=== PATIENT | male | born 1950 | race Caucasian/White ===

== ENCOUNTER → 2019-05-08 | Outpatient (CLI) | payer MEDICARE, OTHER ==
[~2019-05-08] MED LIST: ALBU90OI INH; BECL25NI; CITA20 PO; CLINDAMYCIN; Celexa40 MG PO; Citalopram HBr40 MG PO; DICLOFONO2.5 GM TOP; DYMISTA NASAL S23 GM; Depo-Testos200 MG/ML IM; ESOM20 PO; Flonase 0.05% N16 GM; GLIP5 PO; GLIP5ER PO; Janumet 50-1,01 EACH; Janumet 50-1,01 EACH PO; LISI5 PO; METF500 PO; MONT10T PO; Metformin HCl500 MG PO; NITR.4SL SL; Norco 5-325 Ta1 EACH PO; OMEPRAZOLE DR 40 MG; ONDA4ODT MM; PANT40 PO; PRAV20 PO; PRIM50 PO; Pravastatin Sod80 MG PO; Prednisone20 MG PO; Prilosec Otc20 MG PO; Prinivil10 MG; Zantac150 MG PO
[2019-05-08 15:48] LABS: Protein, Urine Quantitative 25.1 mg/dL (0.0-11.9)
== END | disposition home or self-care (01) ==
LOC: LAB 14:46 → LAB SHORT 14:46
PROVIDERS: Internal Medicine Nephrology
DX: N18.2 Chronic kidney disease, stage 2 (mild) (principal); D63.1 Anemia in chronic kidney disease; R80.9 Proteinuria, unspecified
CPT/HCPCS: 81050; 82043; 82570; 84156

== ENCOUNTER 2019-08-01 07:54 | Day surgery (SDC) | payer MEDICARE, OTHER ==
[~2019-08-01] VITALS: Ht 170.2 cm; Wt 103.7 kg
[~2019-08-01 07:54] MED LIST changes: +Prinivil10 MG PO
[2019-08-01] MEDS ORDERED: ZYRTEC10 M1 PO (08:09)
--- NOTE | 2019-08-01 08:33 | NUR ---
Ambulatory in Day Surgery History, Chart, Medications and Allergies reviewed before start of procedure.Lungs clear T/O to Auscultation. Patient confirms NPO status and agrees with scheduled surgery. Patient reports completing Chlorhexadine shower X2 prior to admission to hospital.Surgical site prepped with 2% Chlorhexidine cloth wipe.
--- NOTE | 2019-08-01 13:19 | NUR ---
PT ARRIVED TO THE UNIT AT APPROXIMATELY 1220. PT ALERT AND ORIENTED. VSS. WILL MONITOR UNTIL REPORT TO ONCOMING RN.
--- NOTE | 2019-08-01 19:43 | NUR ---
SHIFT SUMMARY PAIN HAS BEEN MANAGED WITH PO PAIN MEDICATION. PT IS A 1 PERSON ASSIST WHEN OOB. TOLERATING FOOD AND FLUIDS. VSS. REPORT GIVEN TO MOLLY SHERMAN.
[2019-08-02 04:06] LABS: BASOPHILS ABSOLUTE AUTO 0.05 K/mm3 (0.00-0.23); BASOPHILS PERCENT AUTO 1 % (0-2); EOSINOPHILS PERCENT AUTO 5 % (0-6); Hematocrit 42.1 % (37.0-53.0); Hemoglobin 13.3 g/dL (13.5-17.5); IMMATURE GRAN ABSOLUTE AUTO 0.06 K/mm3 (0.00-0.10); IMMATURE GRAN PERCENT AUTO 1 % (0-1); LYMPHOCYTES ABSOLUTE AUTO 1.63 K/mm3 (0.84-5.20); LYMPHOCYTES PERCENT AUTO 18 % (21-46); MONOCYTES ABSOLUTE AUTO 0.71 K/mm3 (0.16-1.47); MONOCYTES PERCENT AUTO 8 % (4-13); Mean Corpuscular HGB 27.6 pg (26.0-34.0); Mean Corpuscular HGB Conc 31.6 g/dL (31.5-36.5); Mean Platelet Volume 10.4 fL (9.1-12.4); NEUTROPHILS ABSOLUTE AUTO 6.09 K/mm3 (1.96-9.15); NEUTROPHILS PERCENT AUTO 68 % (41-73); Platelet Count 158 K/mm3 (150-400); RDW Coefficient Variation 14.8 % (11.7-14.2); RDW Standard Deviation 47.2 fL (35.1-46.3); Red Blood Cell Count 4.82 M/mm3 (4.30-5.90); White Blood Cell Count 8.94 K/mm3 (4.00-11.30)
[2019-08-02 04:07] LABS: Mean Corpuscular Volume 87 fL (80-100)
[2019-08-02 04:27] LABS: Bun/Creatinine Ratio 15.6 (12.0-20.0); Calcium, Blood 7.6 mg/dL (8.5-10.1); Creatinine, Blood 1.79 mg/dL (0.60-1.20); Potassium, Blood 4.7 mmol/L (3.5-5.5)
--- NOTE | 2019-08-02 05:42 | NUR ---
SUMMARY: POD [address] DIAZ. VSS, AFEBRILE, ROOM AIR, HOME CPAP AT [facility]. PT PAIN WELL CONTROLLED WITH 5MG OXYCODONE X2 THIS SHIFT AND SCHEDULED MEDS. TOLERATING PO INTAKE, VOIDING AND HAD BM IN NOC. MOVES WELL WITH 1 SBA USING FWW. ANTICIPATE PT/OT AND OOB ACTIVITY WITH PROBABLE DC HOME LATER THIS DAY.
[2019-08-02] MEDS ORDERED: CELE100 PO (10:05)
[2019-08-02] MEDS ORDERED: ASPI81CH PO (10:06)
[2019-08-02] MEDS ORDERED: Percocet 5-3251 EACH PO (10:06)
--- NOTE | 2019-08-02 12:27 | NUR ---
DISCHARGE PT WHEELED OUT BY FRIEND. SCRIPT AND DRSGS GIVEN. STATES UNDERSTANDING OF DISCHARGE INSTRUCTIONS.
--- NOTE | 2019-08-03 09:08 | NUR ---
08/03/19 0908 Maricel Pérez VERIFICATIONS: EDIT CHART.
== END 2019-08-02 12:24 | disposition home or self-care (01) ==
LOC: ORSCMMR 07:54 → ORD 08:45 → ORSCMMR 09:45 → ORD 10:00 → SURS 12:46 → ORSCMMR 08-02 12:24
PROVIDERS: Orthopaedic Surgery
PROC: 0SRC0JA Replacement of Right Knee Joint with Synthetic Substitute, Uncemented, Open Approach (ICD-10-PCS; principal; 2019-08-01 09:45)
DX: M17.11 Unilateral primary osteoarthritis, right knee (principal); I10 Essential (primary) hypertension; E11.9 Type 2 diabetes mellitus without complications; G47.33 Obstructive sleep apnea (adult) (pediatric); J44.9 Chronic obstructive pulmonary disease, unspecified; J45.909 Unspecified asthma, uncomplicated; E78.5 Hyperlipidemia, unspecified; Z79.899 Other long term (current) drug therapy; E66.9 Obesity, unspecified; Z68.35 Body mass index [BMI] 35.0-35.9, adult
CPT/HCPCS: 36415; 73560-RT; 80048; 82947; 85025; 88300; 97110; 97116; 97161; 97530; C1776; J0171; J0690; J0735; J1200; J1815; J1885; J2250; J2704; J2795; J3010; J3490; J7120; Q0163

== ENCOUNTER 2023-08-28 19:20 | Emergency (ER) | payer MEDICARE, BC ==
[~2023-08-28] VITALS: Ht 170.2 cm; Wt 100.7 kg
[~2023-08-28 19:20] MED LIST changes: +ASPI81CH PO; +CELE100 PO; +OZEMPIC0.25 MG/02 SQ; +Percocet 5-3251 EACH PO; +ZYRTEC10 M1 PO
[2023-08-28 19:49] LABS: BASOPHILS ABSOLUTE AUTO 0.03 K/mm3 (0.00-0.23); BASOPHILS PERCENT AUTO 1 % (0-2); EOSINOPHILS ABSOLUTE AUTO 0.25 K/mm3 (0.00-0.68); EOSINOPHILS PERCENT AUTO 5 % (0-6); Hematocrit 52.3 % (37.0-53.0); Hemoglobin 16.2 g/dL (13.5-17.5); IMMATURE GRAN ABSOLUTE AUTO 0.02 K/mm3 (0.00-0.10); IMMATURE GRAN PERCENT AUTO 0 % (0-1); LYMPHOCYTES ABSOLUTE AUTO 1.19 K/mm3 (0.84-5.20); LYMPHOCYTES PERCENT AUTO 25 % (21-46); MONOCYTES ABSOLUTE AUTO 0.41 K/mm3 (0.16-1.47); MONOCYTES PERCENT AUTO 8 % (4-13); Mean Corpuscular HGB 28.9 pg (26.0-34.0); Mean Corpuscular Volume 93 fL (80-100); Mean Platelet Volume 10.3 fL (9.1-12.4); NEUTROPHILS ABSOLUTE AUTO 2.96 K/mm3 (1.96-9.15); NEUTROPHILS PERCENT AUTO 61 % (41-73); Platelet Count 165 K/mm3 (150-400); RDW Coefficient Variation 16.7 % (11.7-14.2); White Blood Cell Count 4.86 K/mm3 (4.00-11.30)
[2023-08-28 20:23] LABS: Albumin, Blood 3.7 g/dL (3.4-5.0); Albumin/Globulin Ratio 0.9 (0.8-1.8); Bilirubin, Total 0.3 mg/dL (0.1-1.0); Bun/Creatinine Ratio 19.6 (12.0-20.0); Calcium, Blood 8.3 mg/dL (8.5-10.1); Creatinine, Blood 1.48 mg/dL (0.60-1.20); Globulin, Blood 3.9 g/dL (2.2-4.0); Potassium, Blood 4.6 mmol/L (3.5-5.5); Total Protein, Blood 7.6 g/dL (6.4-8.2)
[2023-08-28 21:12] VITALS: BP 142/71
== END 2023-08-28 21:32 | disposition home or self-care (01) ==
LOC: ER 19:20
PROVIDERS: Emergency Medicine
DX: A08.4 Viral intestinal infection, unspecified (principal); E11.9 Type 2 diabetes mellitus without complications; E78.5 Hyperlipidemia, unspecified; F41.9 Anxiety disorder, unspecified; F32.A Depression, unspecified; Z88.1 Allergy status to other antibiotic agents; Z79.899 Other long term (current) drug therapy; Z79.84 Long term (current) use of oral hypoglycemic drugs
CPT/HCPCS: 80053; 83690; 85025; 96360; 99284-25; J7030

== ENCOUNTER 2025-08-08 12:36 | Day surgery (SDC) | payer MEDICARE ==
[~2025-08-08] VITALS: Ht 170.2 cm; Wt 106.4 kg
[2025-08-08] MEDS ORDERED: CeFAZolin Sodium 2,000 MG VIAL ONE (13:09)
[2025-08-08] MEDS ORDERED: CALCITRIOL0.25 MC4 (13:50)
[2025-08-08] MEDS ORDERED: ATENOLOL25 MG (13:51)
[2025-08-08] MEDS ORDERED: Lidocaine 2%-Epineph 1:100000 20 ML MDV ONE (13:53)
[2025-08-08 15:20] VITALS: BP 174/79
== END 2025-08-08 15:26 | disposition home or self-care (01) ==
LOC: ORSCSDS 12:36
PROVIDERS: Orthopaedic Surgery
PROC: 0LN60ZZ Release Left Lower Arm and Wrist Tendon, Open Approach (ICD-10-PCS; principal; 2025-08-08 14:15)
DX: M65.4 Radial styloid tenosynovitis [de Quervain] (principal); J44.89 Other specified chronic obstructive pulmonary disease; G47.33 Obstructive sleep apnea (adult) (pediatric); E11.22 Type 2 diabetes mellitus with diabetic chronic kidney disease; I12.9 Hypertensive chronic kidney disease with stage 1 through stage 4 chronic kidney disease, or unspecified chronic kidney disease; N18.9 Chronic kidney disease, unspecified; E66.9 Obesity, unspecified; Z68.36 Body mass index [BMI] 36.0-36.9, adult; K21.9 Gastro-esophageal reflux disease without esophagitis; Z79.84 Long term (current) use of oral hypoglycemic drugs; Z79.4 Long term (current) use of insulin; Z79.899 Other long term (current) drug therapy; Z87.891 Personal history of nicotine dependence
CPT/HCPCS: 82947; J0690; J2704; J7120